=== PATIENT | female | born 1985 | race Caucasian/White ===

== ENCOUNTER 2016-07-02 04:27 | Emergency (ER) | payer OTHER ==
[2016-07-02 04:37] VITALS: BMI 22.4
--- NOTE | 2016-07-02 05:39 | PDOC ---
History of Present Illness - General Chief Complaint: Pain, Acute Stated Complaint: 13 WKS PREG, ABD PAIN Time Seen by Provider: 07/02/16 04:36 - History of Present Illness Initial Comments: 07/02/16 05:02 CHIEF COMPLAINT: abdominal pain HISTORY OF PRESENT ILLNESS: 31 yo F presents to ED with lower abdominal pain since this morning. Patient reports a "shooting, cramping pain" to her lower abdomen but denies any vaginal bleeding. She reports nausea but states "it 's just normal nausea" and no vomiting or diarrhea. No recent travel or sick contacts. PAST MEDICAL HISTORY: Denies past medical history FAMILY HISTORY: Denies SOCIAL HISTORY: Denies tobacco, alcohol, illicit drug use. SURGICAL HISTORY: Denies ALLERGIES: No known drug allergies REVIEW OF SYSTEMS General/Constitutional: Denies fever or chills. Denies weakness. HEENT: Denies change in vision. Denies ear pain or discharge. Denies sore throat. Cardiovascular: Denies chest pain or shortness of breath. Respiratory: Denies cough, wheezing, or hemoptysis. Gastrointestinal: Nausea. Denies vomiting, diarrhea or constipation. Denies rectal bleeding. Genitourinary: Denies dysuria, frequency, or change in urination. Musculoskeletal: Denies joint or muscle swelling or pain. Denies neck or back pain. Skin and breasts: Denies rash or easy bruising. PHYSICAL EXAM General Appearance: Well-appearing, appropriately dressed. No apparent distress , no intoxication. HEENT: EOMI, PERRLA, normal ENT inspection, normal voice, TMs normal, pharynx normal. No conjunctival pallor. No photophobia, scleral icterus. Respiratory/Chest: Lungs CTAB. Cardiovascular: RRR. S1, S2. Gastrointestinal/Abdominal: Tenderness to lower abdomen. Normal bowel sounds. Abdomen soft, non-distended. No tenderness or rebound tenderness. No organomegaly, pulsatile mass, guarding, hernia, hepatomegaly, splenomegaly. Musculoskeletal/Extremities: Normal inspection. FROM of all extremities, normal capillary refill. Pelvis Stable. No CVA tenderness. No tenderness to extremities, pedal edema, swelling, erythema or deformity. Integumentary: Appropriate color, dry, warm. No cyanosis, erythema, jaundice or rash Neurologic: food sampler II-XII intact. Fully oriented, alert. Appropriate mood/affect. Motor strength 5/5. No appreciable EOM palsy, facial droop or sensory deficit. 07/02/16 05:41 Past History - Past Medical History Allergies/Adverse Reactions: Allergies Allergy/AdvReac Type Severity Reaction Status Date / Time No Known Allergies Allergy Verified 07/02/16 04:36 Home Medications: Ambulatory Orders Cephalexin [Keflex] 500 mg PO Q6H #20 capsule 07/02/16 - Psycho/Social/Smoking Cessation Hx Suicidal Ideation: No Smoking History: Never smoked *Physical Exam - Vital Signs Last Vital Signs Temp Pulse Resp BP Pulse Ox 98.7 F 89 16 127/62 98 07/02/16 04:36 07/02/16 04:36 07/02/16 04:36 07/02/16 04:36 07/02/16 04:36 ED Treatment Course - LABORATORY CBC & Chemistry Diagram: 07/02/16 09:09 07/02/16 09:09 Medical Decision Making - Medical Decision Making 07/02/16 07:14 31 yo 13 wk F presents to ED with lower abdominal pain x 1 day. -Transvaginal US Case discussed in detail with oncoming emergency provider including history, physical exam and ancillary studies. In brief, this patient is being seen in the ED for a chief complaint of: lower abdominal pain in I have completed the initial assessment interview note and have ordered the following labs: none Pending results: TV US Plan for disposition as follows: pending Oncoming NPA Saskia has assumed care for the patient and will complete the evaluation and treatment. *DC/Admit/Observation/Transfer Diagnosis at time of Disposition: Urinary tract infection, - Discharge Dispostion Disposition: HOME - Prescriptions Prescriptions: Cephalexin [Keflex] 500 mg PO Q6H #20 capsule - Referrals Referrals: Guido Larios MD [Staff Physician] - 07/10/16 Clementina White MD [Primary Care Provider] - - Patient Instructions Printed Discharge Instructions: DI for Urinary Tract Infection (UTI) Additional Instructions: -Rest and stay well-hydrated -Take Keflex as prescribed for UTI -Follow up with Dr. Larios as scheduled -Return here for worsening pain, vaginal bleeding, fevers, or any other concerning symptoms
--- NOTE | 2016-07-02 07:08 | PDOC ---
*Physical Exam - Vital Signs Last Vital Signs Temp Pulse Resp BP Pulse Ox 98.7 F 89 16 127/62 98 07/02/16 04:36 07/02/16 04:36 07/02/16 04:36 07/02/16 04:36 07/02/16 04:36 ED Treatment Course - LABORATORY CBC & Chemistry Diagram: 07/02/16 09:09 07/02/16 09:09 Medical Decision Making - Medical Decision Making 07/02/16 07:07 Signout received from CARLOS Shelton. Briefly, this is a 31 year old female, 13 weeks complaining of lower abdominal pain this morning. Will obtain UA, culture, basic labs, and ultrasound. 07/02/16 11:24 U/s reviewed: Single, live IUP 13 weeks 6 days with FHR 152. Amniotic fluid volume within normal limits. UA with 6 WBCs, possibly consistent with UTI. Will treat with Keflex, culture is pending. Patient has OB followup appointment next Sunday. Return precautions reviewed. *DC/Admit/Observation/Transfer Diagnosis at time of Disposition: Urinary tract infection Qualifiers: Urinary tract infection type: acute cystitis Hematuria presence: without hematuria Qualified Code(s): N30.00 - Acute cystitis without hematuria Qualifiers: Weeks of gestation: 13 weeks Qualified Code(s): Z3A.13 - 13 weeks gestation of - Discharge Dispostion Disposition: HOME Condition at time of disposition: Stable Admit: No - Prescriptions Prescriptions: Cephalexin [Keflex] 500 mg PO Q6H #20 capsule - Referrals Referrals: Clementina White MD [Primary Care Provider] - Guido Larios MD [Staff Physician] - 07/10/16 - Patient Instructions Printed Discharge Instructions: DI for Urinary Tract Infection (UTI) Additional Instructions: -Rest and stay well-hydrated -Take Keflex as prescribed for UTI -Follow up with Dr. Larios as scheduled -Return here for worsening pain, vaginal bleeding, fevers, or any other concerning symptoms
[2016-07-02 07:25] LABS: BASOPHIL 0.3 % (0-2.0); EOSINOPHIL 0.7 % (0-4.5); MCH 32.8 pg (25.7-33.7); MCHC 35.9 g/dl (32.0-36.0); MEAN CELL VOLUME 91.3 fl (80-96); MEAN PLT VOLUME 7.4 fl (7.5-11.1); NEUTROPHILS 74.6 % (42.8-82.8); PLATELET COUNT 167 K/MM3 (134-434); RDW 13.2 % (11.6-15.6); WHITE BLOOD COUNT 7.1 K/mm3 (4.0-10.0)
[2016-07-02 07:38] LABS: URINE APPEARANCE SLCLOUDY; URINE BILIRUBIN NEGATIVE (NEGATIVE); URINE BLOOD NEGATIVE (NEGATIVE); URINE COLOR YELLOW; URINE GLUCOSE (UA) NEGATIVE (NEGATIVE); URINE KETONE NEGATIVE (NEGATIVE); URINE NITRITE NEGATIVE (NEGATIVE); URINE PROTEIN NEGATIVE (NEGATIVE); URINE UROBILINOGEN NEGATIVE E.U./dl (0.2-1.0)
[2016-07-02 07:40] LABS: URINE LEUK ESTERASE TRACE (NEGATIVE); URINE MUCUS MODERATE; URINE RBC 3 /hpf (0-3); URINE WBC 9 /hpf (3-5)
[2016-07-02 07:59] LABS: ALBUMIN 3.4 g/dl (3.4-5.0); ALK PHOS 37 U/L (45-117); ANION GAP 11 (8-16); BILIRUBIN,TOTAL 0.3 mg/dL (0.2-1.0); CALCIUM 8.5 mg/dL (8.5-10.1); CO2 24 mmol/L (21-32); COCKROFT - GAULT 169.3455; CREATININE 0.4 mg/dL (0.55-1.02); GLUCOSE,RANDOM 68 mg/dL (74-106); SGOT/AST 18 U/L (15-37); SGPT/ALT 26 U/L (12-78); TOT PROT 6.3 g/dl (6.4-8.2)
[2016-07-02 09:19] LABS: BASOPHIL 0.3 % (0-2.0); EOSINOPHIL 0.5 % (0-4.5); MCH 32.8 pg (25.7-33.7); MEAN CELL VOLUME 91.1 fl (80-96); MEAN PLT VOLUME 7.3 fl (7.5-11.1); NEUTROPHILS 75.5 % (42.8-82.8); PLATELET COUNT 167 K/MM3 (134-434); RDW 13.2 % (11.6-15.6); WHITE BLOOD COUNT 6.9 K/mm3 (4.0-10.0)
[2016-07-02 09:56] LABS: CALCIUM 8.8 mg/dL (8.5-10.1); COCKROFT - GAULT 135.473; CREATININE 0.5 mg/dL (0.55-1.02)
[2016-07-02] MEDS ORDERED: CEPHALEXIN MONOHYDRATE 500 MG CAPSULE (UD) PO ONE (10:02)
[2016-07-02] MEDS ORDERED: CEPHALEXIN MONOHYDRATE 250 MG CAPSULE (FP) ONE (10:17)
[2016-07-02 11:41] VITALS: BP 135/62; PULSE 81; TEMP 97.8
== END 2016-07-02 11:40 | disposition home or self-care (01) ==
LOC: JER 04:27
DX: O23.31 Infections of other parts of urinary tract in pregnancy, first trimester (principal); Z3A.13 13 weeks gestation of pregnancy
CPT/HCPCS: 36415; 76801-TC; 80048; 80053; 81003; 81015; 84702; 85025; 86850; 86900; 86901; 87086; 99283-25